=== PATIENT | male | born 1950 | race Caucasian/White ===

== ENCOUNTER 2021-10-15 08:32 | Day surgery (SDC) | payer MEDICARE ==
[2021-10-15] MEDS ORDERED: Dextrose 5%-Lactated Ringers 1,000 ML IV SCH (09:15)
[2021-10-15] MEDS ORDERED: Propofol 200 MG/20 ML SDV ONE (09:25)
[2021-10-15] MEDS ORDERED: fentaNYL 100 MCG/2 ML SDV ONE (09:25)
[2021-10-15] MEDS ORDERED: Midazolam 1 MG/ML 2 ML SDV ONE (09:25)
== END 2021-10-15 12:10 | disposition home or self-care (01) ==
LOC: JP.SDS 08:32
PROVIDERS: ATTEND Family Medicine
DX: Z12.11 Encounter for screening for malignant neoplasm of colon (principal); K63.5 Polyp of colon; K57.30 Diverticulosis of large intestine without perforation or abscess without bleeding; K64.4 Residual hemorrhoidal skin tags; I10 Essential (primary) hypertension; E66.9 Obesity, unspecified
CPT/HCPCS: J2250; J2704; J3010; J7121